=== PATIENT | male | born 1955 | race Caucasian/White ===

== ENCOUNTER → 2017-03-28 | Outpatient (CLI) | payer MEDICARE ==
--- NOTE | 2017-03-30 11:59 | RAD ---
Procedure: Three views bilateral hands Exam Date: 03/28/2017 12:00 AM CDT Ordering Provider: JIMMIE MORILLO Clinical Indication: Bilateral hand pain Comparison: None Findings: There is bilateral severe thumb CMC and multiple moderate interphalangeal joint space narrowing and degenerative spurring. No acute fracture or focal osseous destruction is present. The soft tissues are unremarkable. IMPRESSION: No acute osseous abnormality. 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 Procedure: Four views bilateral knees Exam Date: 03/28/2017 12:00 AM CDT Ordering Provider: JIMMIE MORILLO Clinical Indication: Bilateral knee pain Comparison: None Findings: On the right, there is fragmentation of the anterior tibial tuberosity and thickened appearance of the patellar tendon. No acute fracture or focal osseous destruction is present. The joint spaces are maintained. No significant joint effusion. On the left, there is degenerative spurring at the patella. Joint spaces are maintained. No acute fracture or focal osseous destruction. No joint effusion. IMPRESSION: No acute osseous abnormality. 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 Suggestion of thickened appearance of the right patellar tendon or significant tendinosis. Procedure: AP view pelvis Exam Date: 03/28/2017 12:00 AM CDT Ordering Provider: JIMMIE MORILLO Clinical Indication: Left-sided knee pain. Comparison: None Findings: No fracture, focal osseous destruction, or malalignment. Mild medial bilateral hip joint space narrowing and spurring is present.. Soft tissues are unremarkable. IMPRESSION: No acute osseous abnormality. Mild bilateral hip degenerative joint disease. Electronically signed by: Lupe Willams MD 03/30/2017 11:57 AM CDT
== END | disposition home or self-care (01) ==
LOC: RAD 11:33
PROVIDERS: ATTEND Orthopaedic Surgery
DX: M25.561 Pain in right knee (principal); M25.551 Pain in right hip; M25.552 Pain in left hip; M79.641 Pain in right hand; M79.642 Pain in left hand

== ENCOUNTER → 2017-03-31 | Outpatient (CLI) | payer MEDICARE | END | disposition home or self-care (01) | LOC: RESP 09:09 | PROVIDERS: ATTEND Orthopaedic Surgery | DX: Z01.818 Encounter for other preprocedural examination (principal) ==

== ENCOUNTER 2017-04-08 05:47 | Day surgery (SDC) | payer MEDICARE ==
[2017-04-08] MEDS ORDERED: ceFAZolin SODIUM 1 GM VIAL ONE (07:53)
[2017-04-08] MEDS ORDERED: BUPIVACAINE 0.25% INJ 30 ML VIAL INJ ONE (07:53)
[2017-04-08] MEDS ORDERED: LIDOCAINE 1% 50 ML VIAL INJ ONE (07:53)
[2017-04-08] MEDS ORDERED: LACTATED RINGERS 1,000 ML ONE (08:10)
[2017-04-08] MEDS ORDERED: SODIUM CHL 0.9% 100ML MINI-BAG 100 ML IVPB ONE (08:10)
[2017-04-08] MEDS ORDERED: LIDOCAINE 1% 10 ML VIAL INJ ONE (10:00)
[2017-04-08] MEDS ORDERED: PROPOFOL 200 MG/20 ML VIAL IV ONE (10:00)
[2017-04-08] MEDS ORDERED: MIDAZOLAM INJ 2 MG/2 ML VIAL ONE (10:00)
[2017-04-08] MEDS: ceFAZolin SODIUM 1 GM VIAL ONE ×3 (10:00→10:35)
[2017-04-08] MEDS ORDERED: fentaNYL CITRATE INJ 50 MCG/ML AMP ONE (10:01)
[2017-04-08] MEDS: VANCOMYCIN HCL INJ 1,000 MG VIAL IVPB ONE ×2 (10:27→10:35)
[2017-04-08 11:36] VITALS: BP 131/88; TEMP 96.7; O2SAT 98
--- NOTE | 2017-04-08 15:50 | OP ---
DATE OF PROCEDURE: date PREOPERATIVE DIAGNOSIS: 1. Left carpal tunnel syndrome. POSTOPERATIVE DIAGNOSIS: 1. Left carpal tunnel syndrome. PROCEDURE: 1. Left carpal tunnel release. SURGEON: Santos Chaudhary MD. PIN CLEANER: Manuel White CST, SA-C. ANESTHESIA: Local with sedation. COMPLICATIONS: None. FINDINGS: Thickening of the transverse carpal ligament and narrowing of the median nerve across the carpal tunnel. INDICATION: Mr. Serra has a long history of pain in the wrist with associated numbness. Unfortunately, he has had this going on for quite some time. Because of the ongoing nature of it and the progressive nature of it, he has requested operative intervention. After discussing the risks, benefits and alternatives to that, the patient has given informed consent for carpal tunnel release. PROCEDURE: The patient was brought to the Operating Room and placed in the supine position. Sedation was administered and local anesthetic was injected into the operative area under sterile conditions. After the injection of anesthetic, the arm was sterilely prepped and draped. A longitudinal incision was made directly overlying the transverse carpal ligament and blunt dissection was carried down to the ligament. The transverse carpal ligament was sharply transected along its length and a [place] elevator was used to ensure complete release of the ligament. Once release had been confirmed, the wound was thoroughly irrigated and the wound was closed with Nylon suture. A sterile dressing was placed and the patient was taken to the Day Surgery Unit. POSTOPERATIVE INSTRUCTIONS: The patient has been instructed to do range of motion of the digits and will followup with us in two days. [facility][id number] [facility]
== END 2017-04-08 11:25 | disposition home or self-care (01) ==
LOC: AMB 05:47
PROVIDERS: ATTEND Orthopaedic Surgery
DX: G56.02 Carpal tunnel syndrome, left upper limb (principal); I10 Essential (primary) hypertension; E11.9 Type 2 diabetes mellitus without complications; K21.9 Gastro-esophageal reflux disease without esophagitis; E66.9 Obesity, unspecified; F17.200 Nicotine dependence, unspecified, uncomplicated; J44.9 Chronic obstructive pulmonary disease, unspecified; Z79.82 Long term (current) use of aspirin; Z79.899 Other long term (current) drug therapy
CPT/HCPCS: 01810; 36416; 64721; 82948; J0690; J2250; J3010; J3370; J3490; J7050; J7120

== ENCOUNTER → 2017-04-17 | Outpatient (CLI) | payer MEDICARE | END | disposition home or self-care (01) | LOC: RESP 09:21 | PROVIDERS: ATTEND Orthopaedic Surgery | DX: Z01.818 Encounter for other preprocedural examination (principal) ==

== ENCOUNTER 2017-04-30 06:04 | Day surgery (SDC) | payer MEDICARE ==
--- NOTE | 2017-04-28 17:45 | HP ---
CHIEF COMPLAINT: Right hand numbness. HISTORY OF PRESENT ILLNESS: Mr. Serra is a 61 year-old male with a history of right hand numbness and pain. He has had left carpal tunnel release. He denies any trauma related to this. Denies any radiation of pain and denies any certain symptoms proximal to the wrist. Because of the ongoing nature of it and the numbness at rest, he has requested operative intervention. After discussing the risks, benefits, and alternatives to that, he has given informed consent for that. PAST SURGICAL HISTORY: 1. Tonsillectomy. 2. Left carpal tunnel release. 3. Neck fusion. 4. Pacemaker placement. CURRENT MEDICATIONS: 1. Aspirin. 2. Coreg. 3. Zoloft. 4. Metformin. 5. Vitamin D. ALLERGIES: NO KNOWN DRUG ALLERGIES. CODE STATUS: FULL CODE. IMMUNIZATIONS: Up to date. FAMILY HISTORY: None pertinent to today's complaints. SOCIAL HISTORY: He does not drink or use illicit drugs. He does smoke on occasion. REVIEW OF SYSTEMS: Negative except as indicated in the History of Present Illness. PHYSICAL EXAMINATION: VITAL SIGNS: Blood pressure 172/89, pulse 70. Height 5' 11", weight 210. MENTAL STATUS: The patient is awake, alert, and is able to give a good history and participate in the physical. The patient is oriented to person, place and time. SKIN: Normal tone and turgor. MUSCULOSKELETAL: He has positive numbness at rest so lets get a carpal compression test, although he does seem to have some worsening of his symptoms. He has Tinel's and Phalen's that are slightly equivocal secondary to his numbness at rest. The entire extremity is warm and well perfused. He has full 5/5 strength throughout and there is no deformity. ASSESSMENT: 1. Carpal tunnel syndrome. PLAN: Given the ongoing symptoms and the difficulty he is having, he has elected operative intervention. After discussing the risks, benefits, and alternatives to that he has given informed consent for that. I did discuss with him, at length, the fact that the duration and severity of his symptoms will likely cause a greater length of time for recovery. We also discussed the possibility of incomplete recovery of function, given the duration of his symptoms. He expressed full understanding. #[id number] [facility]
[2017-04-30] MEDS ORDERED: LACTATED RINGERS 1,000 ML ONE (06:08)
[2017-04-30] MEDS ORDERED: SODIUM CHL 0.9% 100ML MINI-BAG 100 ML IVPB ONE (06:08)
[2017-04-30] MEDS ORDERED: ceFAZolin SODIUM 1 GM VIAL ONE (06:09)
[2017-04-30] MEDS ORDERED: PROPOFOL 200 MG/20 ML VIAL IV ONE (07:00)
[2017-04-30] MEDS ORDERED: LIDOCAINE 1% 10 ML VIAL INJ ONE (07:00)
[2017-04-30] MEDS ORDERED: LIDOCAINE 1% 50 ML VIAL INJ ONE (10:18)
[2017-04-30] MEDS ORDERED: BUPIVACAINE 0.25% INJ 30 ML VIAL INJ ONE (10:18)
[2017-04-30] MEDS ORDERED: MIDAZOLAM INJ 2 MG/2 ML VIAL ONE (10:24)
[2017-04-30] MEDS ORDERED: fentaNYL CITRATE INJ 50 MCG/ML AMP ONE (10:25)
[2017-04-30] MEDS: ceFAZolin SODIUM 1 GM VIAL ONE ×2 (10:51→11:02)
[2017-04-30] MEDS: VANCOMYCIN HCL INJ 1,000 MG VIAL IVPB ONE ×2 (10:52→11:02)
[2017-04-30 12:16] VITALS: BP 132/85; TEMP 97.8; O2SAT 96
--- NOTE | 2017-05-01 13:08 | OP ---
DATE OF PROCEDURE: 04/30/17 PREOPERATIVE DIAGNOSIS: 1. Carpal tunnel syndrome. POSTOPERATIVE DIAGNOSIS: 1. Carpal tunnel syndrome. PROCEDURE: 1. Carpal tunnel release. SURGEON: Santos Chaudhary MD. MEDICAL PSYCHOTHERAPIST: Manuel White CST, SA-Dottie. ANESTHESIA: Local with sedation. COMPLICATIONS: None. FINDINGS: 1. Thickening of the transverse carpal ligament. 2. Narrowing of the median nerve across the carpal tunnel. INDICATION: Mr. Serra has a long history of both pain and numbness in the hand. Because of the ongoing symptoms and failure of conservative measures, he has requested operative intervention. After discussing the risks, benefits and alternatives to that, the patient has given informed consent for carpal tunnel release. PROCEDURE: The patient was brought to the Operating Room and placed in the supine position. Sedation was administered and local anesthetic was injected into the operative area under sterile conditions. After the injection of anesthetic, the arm was sterilely prepped and draped. A longitudinal incision was made directly overlying the transverse carpal ligament and blunt dissection was carried down to the ligament. The transverse carpal ligament was sharply transected along its length and a [place] elevator was used to ensure complete release of the ligament. Once release had been confirmed, the wound was thoroughly irrigated and the wound was closed with Nylon suture. A sterile dressing was placed and the patient was taken to the Day Surgery Unit. POSTOPERATIVE INSTRUCTIONS: The patient has been encouraged to do range of motion of the digits and will followup with us in two days. #[id number] [facility]
== END 2017-04-30 12:02 | disposition home or self-care (01) ==
LOC: AMB 06:04
PROVIDERS: ATTEND Orthopaedic Surgery
DX: G56.01 Carpal tunnel syndrome, right upper limb (principal); I10 Essential (primary) hypertension; I25.10 Atherosclerotic heart disease of native coronary artery without angina pectoris; E11.9 Type 2 diabetes mellitus without complications; F17.210 Nicotine dependence, cigarettes, uncomplicated; J44.9 Chronic obstructive pulmonary disease, unspecified; Z95.0 Presence of cardiac pacemaker; Z79.84 Long term (current) use of oral hypoglycemic drugs; Z79.899 Other long term (current) drug therapy
CPT/HCPCS: 01810; 36416; 64721; 82948; J0690; J2250; J3010; J3370; J3490; J7050; J7120

== ENCOUNTER → 2017-07-07 | Outpatient (CLI) | payer MEDICARE ==
--- NOTE | 2017-07-09 09:45 | MAM ---
EXAM DESCRIPTION: 3D Diagnostic, Bilateral CLINICAL HISTORY: 62 yearsMaleNODULE IN UNSPECIFIED BREAST right breast mass. Sister with breast cancer. COMPARISON: None. No prior reports available. TECHNIQUE: Bilateral digital screening. CC LM and MLO projection full-field, synthesized images Bilateral LM, CC and MLO full-field projections, 3-D tomosynthesis. CAD not utilized. FINDINGS: The breast parenchymal density pattern is: Almost entirely fatty. No skin thickening or nipple retraction bilaterally. Minimal retroareolar fibroglandular tissue bilaterally but symmetric. No focal, stellate mass or density no focal asymmetry, and no suspicious microcalcifications bilaterally IMPRESSION: BI-RADS CATEGORY: 2 - BENIGN FINDINGS. FOLLOW UP: Diagnostic digital bilateral mammography, if needed, based upon clinical findings . Written communication explaining the IMPRESSION and follow-up, will be mailed to the patient and referring health care provider. Electronically signed by: Manuel Bernabe MD 07/09/2017 9:44 AM CROSSING SUPERVISOR
== END ==
LOC: MAMMO 11:00
PROVIDERS: ATTEND Nurse Practitioner Family
DX: N63.21 Unspecified lump in the left breast, upper outer quadrant (principal)
CPT/HCPCS: 77066; G0279

== ENCOUNTER 2018-03-26 05:45 | Day surgery (SDC) | payer MEDICARE ==
--- NOTE | 2018-03-24 15:06 | RAD ---
EXAM DESCRIPTION: Chest,2 Views CLINICAL HISTORY: 62 years Male, pre op right chest mass COMPARISON: 27 April 2013, 20 January 2018 TECHNIQUE: PA/lateral FINDINGS: A large lung mass is observed in the right lung apex measuring 7.52 cm in greatest diameter. A small calcified room is observed in the left lung apex. A pacemaker with atrial and ventricular leads is seen in place. A small calcified granulomas observed at the right lung base. Degenerative changes are seen in the thoracic spine. IMPRESSION: A large right apical lung mass is observed consistent with a pulmonary neoplasm or metastatic focus. The mass is increased in size since the previous exam of 20 January 2018 Electronically signed by: Dom Ferrera MD 03/24/2018 3:05 PM CDT
[2018-03-26] MEDS ORDERED: LACTATED RINGERS 1,000 ML ONE (06:49)
[2018-03-26] MEDS ORDERED: ceFAZolin SODIUM 1 GM VIAL ONE (06:49)
[2018-03-26] MEDS ORDERED: SODIUM CHL 0.9% 100ML MINI-BAG 100 ML IVPB ONE (06:49)
[2018-03-26] MEDS ORDERED: PROPOFOL 200 MG/20 ML VIAL IV ONE (07:00)
[2018-03-26] MEDS ORDERED: LIDOCAINE 1% 10 ML VIAL INJ ONE (07:00)
[2018-03-26] MEDS ORDERED: MIDAZOLAM INJ 5 MG/5 ML VIAL ONE (08:11)
[2018-03-26] MEDS ORDERED: fentaNYL CITRATE INJ 50 MCG/ML AMP ONE (08:35)
[2018-03-26] MEDS: HEPARIN SODIUM 100 U/ML 5 ML SYG IV ONE ×2 (08:58→09:00)
[2018-03-26] MEDS: SODIUM BICARBONATE VIAL 50 MEQ/50 ML VIAL ONE ×2 (08:59→09:00)
[2018-03-26] MEDS: SODIUM CHLORIDE 0.9% 50 ML VIAL ONE ×2 (08:59→09:00)
[2018-03-26] MEDS: LIDOCAINE 1% 50 ML VIAL INJ ONE ×2 (08:59→09:00)
--- NOTE | 2018-03-26 10:24 | OP ---
DATE OF PROCEDURE: 03/26/18 PREOPERATIVE DIAGNOSIS: 1. Carcinoma of the upper lobe, right lung. 2. Poor peripheral vascular access. POSTOPERATIVE DIAGNOSIS: 1. Carcinoma of the upper lobe, right lung. 2. Poor peripheral vascular access. PROCEDURE: 1. Insertion of right subclavian venous access port using fluoroscopy. SURGEON: Jim Degroot MD. NETWORK STRATEGIST: None. ANESTHESIA: Local infiltration of 1% lidocaine with bicarb and IV sedation by Anesthesia. INDICATION: The patient is a 62-year-old male who was found to have a right upper lobe mass with mediastinal adenopathy. Biopsy is consistent with a carcinoma. He is to begin a combination of chemotherapy and radiation treatments for this. He does have a pacemaker on the left side, so the port is placed on the right. After discussion with the radiation oncologist, the port itself is placed laterally and superiorly. FINDINGS: The fluoroscopy revealed the guidewire and then the catheter in the superior vena cava. PROCEDURE: After the patient was brought to the Surgical Suite and placed in supine position, he was prepped and draped in the usual sterile manner. A surgical time-out was taken. At this point, local infiltration of anesthesia was obtained in the infraclavicular area and then the 22-gauge needle was introduced under the clavicle, advanced and venous blood was obtained. The 18- gauge thin wall needle was then introduced in the same pattern. Venous blood was aspirated. The guidewire was introduced without difficulty to approximately 25 cm. The needle was removed. At this point, a towel was placed over the field and fluoroscopy was used to identify the guidewire in the superior vena cava. At this point, a port pocket was formed in the usual manner with local infiltration of anesthesia, a sharp knife and then blunt dissection and electrocautery. A magnet was used over the pacemaker during the cautery. When this was done, the port was introduced into the pocket and sutured in placed with 2 Prolene 3-0 simple sutures. The catheter was then tunneled from the port pocket to the insertion site. At this point, it was cut to appropriate length and wiped off with heparinized saline. The dilator introducer was then introduced over the guidewire and the dilator and the guidewire were removed. The catheter was introduced without difficulty into the introducer and then the introducer was removed in the usual manner. When this was done, hemostasis was noted to be adequate. At this point, the port was accessed with a Luna needle and aspirated and then flushed, first with heparinized saline, then with heplock and de-accessed. At this point, a towel was placed over the field. Another fluoroscopy identification saw the catheter in the superior vena cava. At this point, the port pocket was closed with interrupted 3-0 Vicryl subcutaneous sutures and then 4-0 Vicryl subcuticular sutures. The insertion site was closed with a single 4-0 subcuticular simple suture. Wounds were cleaned, dried and benzoin and Steri-Strips were used on the skin. A sterile pressure dressing was applied. The patient was awakened and taken to the Recovery Room in stable condition. Estimated blood loss was less than 10 mL. All sponge, needle and instrument counts were correct. [facility][id number] [facility]
[2018-03-26 10:34] VITALS: BP 100/66; TEMP 96.6; O2SAT 97
--- NOTE | 2018-03-26 10:57 | RAD ---
EXAM DESCRIPTION: Chest,1 View CLINICAL HISTORY: POST OP PORT INSERTION. COMPARISON: Chest x-ray March 24, 2018. TECHNIQUE: AP portable taken at 1036 hours, upright position. FINDINGS: VAD placed into mid SVC via right subclavian approach. No pneumothorax or mediastinal widening. Again noted is large right upper lobe mass which may be laterally pleural-based. No new masses or infiltrates. Stable nodule mid lateral left lung. Stable position of pacemaker and pacing wires. Heart size and pulmonary vascularity unchanged and within normal range. IMPRESSION: Customary positioning of central VAD placed today with no radiographic complications. Electronically signed by: Manuel Bernabe MD 03/26/2018 10:56 AM CDT
== END 2018-03-26 11:20 | disposition home or self-care (01) ==
LOC: AMB 05:45
PROVIDERS: ATTEND Surgery
DX: C34.11 Malignant neoplasm of upper lobe, right bronchus or lung (principal); R59.0 Localized enlarged lymph nodes; E11.9 Type 2 diabetes mellitus without complications; K21.9 Gastro-esophageal reflux disease without esophagitis; I10 Essential (primary) hypertension; I25.10 Atherosclerotic heart disease of native coronary artery without angina pectoris; J44.9 Chronic obstructive pulmonary disease, unspecified; R55 Syncope and collapse; F17.210 Nicotine dependence, cigarettes, uncomplicated; Z95.0 Presence of cardiac pacemaker; Z95.5 Presence of coronary angioplasty implant and graft; Z79.82 Long term (current) use of aspirin; Z79.84 Long term (current) use of oral hypoglycemic drugs; Z79.899 Other long term (current) drug therapy
CPT/HCPCS: 00532; 36416; 36561; 71045; 71046; 76000; 80048; 81001; 82948; 85025; 93005; A4216; C1788; J0690; J1642; J2250; J3010; J3490; J7050; J7120

== ENCOUNTER → 2019-04-09 | Outpatient (CLI) | payer MEDICARE | LOC: BFHOS 11:30 | PROVIDERS: ATTEND Family Medicine | DX: N39.0 Urinary tract infection, site not specified (principal) ==